=== PATIENT | female | born 1990 | race African-American/Black ===

== ENCOUNTER 2017-04-22 16:34 | Emergency (ER) | payer OTHER ==
[~2017-04-22] VITALS: Ht 162.6 cm; Wt 97.5 kg
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
[~2017-04-22 16:34] MED LIST: IBUPROFEN800 MG PO; KEFLEX500 MG PO
== END 2017-04-22 18:52 | disposition home or self-care (01) ==
LOC: CED 16:34 → CFTX 16:34
DX: S13.4XXA Sprain of ligaments of cervical spine, initial encounter (principal); S33.5XXA Sprain of ligaments of lumbar spine, initial encounter; V49.40XA Driver injured in collision with unspecified motor vehicles in traffic accident, initial encounter
CPT/HCPCS: 72040; 72100; 84703; 99284